=== PATIENT | male | born 1995 | race Caucasian/White ===

== ENCOUNTER 2016-11-14 21:17 | Emergency (ER) | payer MEDICAID ==
[2016-11-14 21:39] VITALS: BP 133/66
[2016-11-14] MEDS ORDERED: Ketorolac 60 MG/2 ML SDV IM ONE (21:56)
[2016-11-14] MEDS ORDERED: Amoxicillin 500 MG Cap PO ONE (21:56)
[2016-11-14] MEDS ORDERED: Lidocaine 4% Top Soln 50 ML Bottle MUCMEM ONE (21:57)
[2016-11-14] MEDS ORDERED: Acetaminophen/HYDROcodone 325-5 MG Tab PO ONE (22:02)
--- NOTE | 2016-11-14 22:03 | EDM.PDOC ---
ED HPI GENERAL MEDICAL PROBLEM - General Chief Complaint: ENT Problem Stated Complaint: INFECTED TOOTH Time Seen by Provider: 11/14/16 21:57 Source of Information: Reports: Patient, Family History Limitations: Reports: No Limitations - History of Present Illness INITIAL COMMENTS - FREE TEXT/NARRATIVE: pt is having severe pain in the rt upper molar area. He is having severe pain in the tooth the last few days. . He has not had a fever. Onset: Gradual Duration: Day(s):, Getting Worse Location: Reports: Face Associated Symptoms: Reports: No Other Symptoms right tooth Pain Score (Numeric/FACES): 8 - Related Data Allergies Allergy/AdvReac Type Severity Reaction Status Date / Time No Known Allergies Allergy Verified 11/23/14 07:21 Home Meds: Home Meds Insulin Pump Cartridge [T:Flex] 1 each SQ ASDIRECTED 01/10/16 [History] Past Medical History Musculoskeletal History: Reports: Fracture Other Musculoskeletal History: back muscle spasms. fx ankle. fx hand Neurological History: Reports: Concussion Other Psychiatric History: history of anxiety adn depression not current Endocrine/Metabolic History: Reports: Diabetes, Type I, Other (See Below) Other Endocrine/Metabolic History: diabetic neuropathy feet - Past Surgical History GI Surgical History: Reports: Appendectomy Social & Family History - Tobacco Use Smoking Status *Q: Current Every Day Smoker Years of Tobacco use: 7 Packs/Tins Daily: 2 Used Tobacco, but Quit: No Second Hand Smoke Exposure: Yes - Caffeine Use Caffeine Use: Reports: Soda - Alcohol Use Days Per Week of Alcohol Use: 1 Number of Drinks Per Day: 10 Total Drinks Per Week: 10 Date of Last Drink: 11/03/16 - Recreational Drug Use Recreational Drug Use: No ED ROS ENT - Review of Systems Review Of Systems: See Below Constitutional: Reports: Night Sweats HEENT: Reports: Dental Pain Respiratory: Reports: No Symptoms Cardiovascular: Reports: No Symptoms Endocrine: Reports: No Symptoms GI/Abdominal: Reports: No Symptoms : Reports: No Symptoms ED EXAM, ENT - Physical Exam Exam: See Below Text/Narrative:: pt broke a molar in the rt upper area. It is very pinful and feels like it is getting infected. Exam Limited By: No Limitations General Appearance: Alert, Anxious, Moderate Distress Ears: Normal TMs Nose: Normal Inspection Mouth/Throat: Dental Tenderness, Other (pt is very tender in the rt upper molar area. ) Head: Atraumatic Neck: Lymphadenopathy (R) Respiratory/Chest: No Respiratory Distress Course - Vital Signs Last Recorded V/S: Last Vital Signs Temp 36.4 C 11/14/16 21:37 Pulse 79 11/14/16 21:37 Resp 16 11/14/16 21:37 BP 133/66 11/14/16 21:37 Pulse Ox 98 11/14/16 21:37 - Orders/Labs/Meds Orders: Active Orders 24 hr Category Date Time Status Lidocaine 4% [Xylocaine 4% Top Soln] Med 11/14/16 21:57 Once 1 ml MUCMEM ONETIME ONE Meds: Medications Discontinued Medications Generic Name Dose Route Start Last Admin Trade Name Freq PRN Reason Stop Dose Admin Amoxicillin 500 mg 11/14/16 21:56 Amoxil PO 11/14/16 21:57 ONETIME ONE Ketorolac Tromethamine 60 mg 11/14/16 21:56 Toradol IM 11/14/16 21:57 ONETIME ONE - Re-Assessments/Exams Free Text/Narrative Re-Assessment/Exam: 11/14/16 22:02 pt was given torodol and norco 5/325 for pain. He was given amoxicillin 500mg Departure - Departure Time of Disposition: 22:03 Disposition: Home, Self-Care 01 Condition: Fair Clinical Impression: Infected tooth, Type 1 diabetes - Discharge Information Forms: ED Department Discharge Care Plan Goals: dental referal for Thursday. put packs on the site with the 4 % lidocaine, amoxicillin 500mg tid, [id number] # 6, motrin 600mg tid. 5/4 - My Orders Last 24 Hours: My Active Orders 11/14/16 21:57 Lidocaine 4% [Xylocaine 4% Top Soln] 1 ml MUCMEM ONETIME ONE - Assessment/Plan Last 24 Hours: My Active Orders 11/14/16 21:57 Lidocaine 4% [Xylocaine 4% Top Soln] 1 ml MUCMEM ONETIME ONE
== END 2016-11-14 22:30 | disposition home or self-care (01) ==
LOC: JP.ED 21:17
DX: K04.7 Periapical abscess without sinus (principal); E10.22 Type 1 diabetes mellitus with diabetic chronic kidney disease; F17.210 Nicotine dependence, cigarettes, uncomplicated; Z90.49 Acquired absence of other specified parts of digestive tract
CPT/HCPCS: 96372; 99283; A9270; J1885

== ENCOUNTER 2017-08-18 22:08 | Emergency (ER) | payer SELFPAY ==
[2017-08-18 23:10] VITALS: BP 136/65
[2017-08-18] MEDS ORDERED: Ketorolac 60 MG/2 ML SDV IM ONE (23:27)
--- NOTE | 2017-08-18 23:29 | EDM.PDOC ---
ED HPI GENERAL MEDICAL PROBLEM - General Chief Complaint: Lower Extremity Injury/Pain Stated Complaint: R FOOT INJURY Time Seen by Provider: 08/18/17 23:24 Source of Information: Reports: Patient, RN Notes Reviewed History Limitations: Reports: No Limitations - History of Present Illness INITIAL COMMENTS - FREE TEXT/NARRATIVE: 21-year-old gentleman presents to emergency department today with complaint of right foot pain, he is unsure of the mechanism of injury he thinks he twisted while walking he is experiencing pain across the top of the foot he has not tried anything for pain relief Right Feet Pain Score (Numeric/FACES): 7 - Related Data Allergies Allergy/AdvReac Type Severity Reaction Status Date / Time No Known Allergies Allergy Verified 08/18/17 23:12 Home Meds: Home Meds Insulin Pump Cartridge [T:Flex] 1 each SQ ASDIRECTED 01/10/16 [History] Past Medical History Musculoskeletal History: Reports: Fracture Other Musculoskeletal History: R KNEE FX, R ANKLE FX, R HAND FX Neurological History: Reports: Concussion Psychiatric History: Reports: Anxiety, Depression Other Psychiatric History: history of anxiety adn depression not current Endocrine/Metabolic History: Reports: Diabetes, Type I, Other (See Below) Other Endocrine/Metabolic History: diabetic neuropathy feet - Past Surgical History GI Surgical History: Reports: Appendectomy Social & Family History - Tobacco Use Smoking Status *Q: Unknown Ever Smoked Years of Tobacco use: 7 Packs/Tins Daily: 2 Used Tobacco, but Quit: No Second Hand Smoke Exposure: Yes - Caffeine Use Caffeine Use: Reports: Soda - Alcohol Use Days Per Week of Alcohol Use: 1 Number of Drinks Per Day: 10 Total Drinks Per Week: 10 - Recreational Drug Use Recreational Drug Use: No Review of Systems - Review of Systems Review Of Systems: See Below Musculoskeletal: Reports: Foot Pain Skin: Reports: No Symptoms Neurological: Reports: No Symptoms ED EXAM, GENERAL - Physical Exam Exam: See Below Free Text/Narrative:: Examination right foot appreciate any edema there is no erythema noted pedal pulse is +2 he is tender to palpation across the dorsal aspect of the range of motion of the digits there is no tenderness at the angle range of motion of ankle Exam Limited By: No Limitations General Appearance: Alert, WD/WN, No Apparent Distress Course - Vital Signs Last Recorded V/S: Last Vital Signs Temp 97.9 F 08/18/17 23:09 Pulse 92 08/18/17 23:09 Resp 16 08/18/17 23:09 BP 136/65 08/18/17 23:09 Pulse Ox 98 08/18/17 23:09 - Orders/Labs/Meds Orders: Active Orders 24 hr Category Date Time Status Foot Comp Min 3V Rt [CR] Stat Exams 08/18/17 23:27 Stop Req Foot Comp Min 3V Rt [CR] Stat Exams 08/19/17 00:15 Taken DME for Discharge [COMM] Per Unit Routine Oth 08/19/17 00:47 Ordered Meds: Medications Discontinued Medications Generic Name Dose Route Start Last Admin Trade Name Freq PRN Reason Stop Dose Admin Ketorolac Tromethamine 60 mg 08/18/17 23:27 08/19/17 00:07 Toradol IM 08/18/17 23:28 60 mg ONETIME ONE Administration Departure - Departure Time of Disposition: 00:48 Disposition: Home, Self-Care 01 Condition: Good Clinical Impression: Right foot sprain Qualifiers: Encounter type: initial encounter Qualified Code(s): S93.601A - Unspecified sprain of right foot, initial encounter - Discharge Information Referrals: Ricky Gonzales MD [Primary Care Provider] - Forms: ED Department Discharge Additional Instructions: Use Tylenol or Motrin as needed for pain control, continue to use the hard soled shoe for comfort, Please followup with your primary care provider in 3-5 days if not better, please call return to the emergency department with worsening of symptoms. We will contact you if the official radiology read is different - My Orders Last 24 Hours: My Active Orders 08/18/17 23:27 Foot Comp Min 3V Rt [CR] Stat 08/19/17 00:15 Foot Comp Min 3V Rt [CR] Stat 08/19/17 00:47 DME for Discharge [COMM] Per Unit Routine - Assessment/Plan Last 24 Hours: My Active Orders 08/18/17 23:27 Foot Comp Min 3V Rt [CR] Stat 08/19/17 00:15 Foot Comp Min 3V Rt [CR] Stat 08/19/17 00:47 DME for Discharge [COMM] Per Unit Routine Plan: Assessment Acuity = acute Site and laterality = right foot sprain Etiology = secondary to twisting injury Manifestations = foot pain Location of injury = Home Lab values = foot x-ray I did review films myself I cannot appreciate any acute process, the official read from radiology is pending Plan He had good improvement with the Toradol injection plan is to discharge home with a hard soled shoe follow-up primary care in 3-5 days for reevaluation use ibuprofen or Tylenol as needed for pain control This note was dictated using Between voice recognition software please call with any questions on syntax or tyler.
--- NOTE | 2017-08-19 08:45 | CR ---
FOOT RIGHT 3 views CLINICAL HISTORY:Pain, trauma FINDINGS:There is no fracture or osseous lesion. The articular surfaces are smooth. Impression: Negative
== END 2017-08-19 01:05 | disposition home or self-care (01) ==
LOC: JP.ED 22:08
DX: S93.601A Unspecified sprain of right foot, initial encounter (principal); E10.9 Type 1 diabetes mellitus without complications; X58.XXXA Exposure to other specified factors, initial encounter
CPT/HCPCS: 73630; 96372; 99283; J1885

== ENCOUNTER 2018-09-10 07:12 | Emergency (ER) | payer MEDICAID, OTHER ==
[2018-09-10 07:26] VITALS: BP 112/82
--- NOTE | 2018-09-10 07:45 | EDM.PDOC ---
ED HPI GENERAL MEDICAL PROBLEM - General Chief Complaint: Abdominal Pain Stated Complaint: FLU?? Time Seen by Provider: 09/10/18 07:37 Source of Information: Reports: Patient History Limitations: Reports: No Limitations - History of Present Illness INITIAL COMMENTS - FREE TEXT/NARRATIVE: 23-year-old type 1 insulin-dependent diabetic has been feeling poorly for the past 2 days with persistent nausea, vomiting, occasional diarrhea, generalized weakness and muscle pain. He pulled out his insulin pump from his right arm to rotate to the left arm yesterday and he thought some "pus came out". He has also had some persistent problems with his right upper molar over the past several days. He is concerned about infection, he is also concerned about ketoacidosis but his glucose has not gone above 300 in the past week and the last 2 levels were under 200. No fevers or chills, he does have some abdominal cramping intermittently but no shortness of breath or cough, no cold symptoms, no rashes or headache. Onset: Gradual (Over the past 2 days) Associated Symptoms: Reports: Malaise, Nausea/Vomiting. Denies: Confusion, Chest Pain, Cough, Shortness of Breath, Weakness Abdominal Pain Score (Numeric/FACES): 7 - Related Data Allergies Allergy/AdvReac Type Severity Reaction Status Date / Time No Known Allergies Allergy Verified 09/10/18 07:27 Home Meds: Home Meds Insulin Pump Cartridge [T:Flex] 1 each SQ ASDIRECTED 01/10/16 [History] Indomethacin 50 mg PO TID 09/10/18 [History] Pregabalin [Lyrica] 50 mg PO TID 09/10/18 [History] atorvaSTATin [Lipitor] 20 mg PO BEDTIME 09/10/18 [History] Past Medical History Musculoskeletal History: Reports: Fracture Other Musculoskeletal History: R KNEE FX, R ANKLE FX, R HAND FX Neurological History: Reports: Concussion Psychiatric History: Reports: Anxiety, Depression Other Psychiatric History: history of anxiety adn depression not current Endocrine/Metabolic History: Reports: Diabetes, Type I, Other (See Below) Other Endocrine/Metabolic History: diabetic neuropathy feet - Past Surgical History GI Surgical History: Reports: Appendectomy Social & Family History - Tobacco Use Smoking Status *Q: Current Every Day Smoker Years of Tobacco use: 8 Packs/Tins Daily: 1 - Caffeine Use Caffeine Use: Reports: Coffee - Recreational Drug Use Recreational Drug Use: No ED ROS GENERAL - Review of Systems Review Of Systems: See Below Constitutional: Reports: Malaise, Decreased Appetite HEENT: Reports: Dental Pain (Right upper molar, chronic fracture is now painful) Respiratory: Denies: Shortness of Breath, Hemoptysis Cardiovascular: Denies: Chest Pain, Dyspnea on Exertion, Palpitations Endocrine: Reports: Fatigue GI/Abdominal: Reports: Abdominal Pain, Diarrhea, Nausea, Vomiting : Reports: No Symptoms Musculoskeletal: Reports: Muscle Pain (Generalized muscle aches) Skin: Reports: Other (Some erythema around his right upper arm injection site, "pus came out", yesterday) Neurological: Denies: Dizziness, Headache, Paresthesia Psychiatric: Reports: No Symptoms ED EXAM, GI/ABD - Physical Exam Exam: See Below Exam Limited By: No Limitations General Appearance: Alert, No Apparent Distress Eyes: Bilateral: Normal Appearance Throat/Mouth: Other (Patient does have a fractured decayed second molar of the right maxilla. No significant gingival swelling or erythema) Head: Atraumatic Neck: Supple Respiratory/Chest: No Respiratory Distress, Lungs Clear Cardiovascular: Regular Rate, Rhythm GI/Abdominal Exam: Normal Bowel Sounds, Soft, Tender (A small amount of tenderness to palpation across the left abdomen especially periumbilical) Extremities: No Pedal Edema, Other (Patient does have a small amount of redness around his right posterior upper arm injection site but no fluctuance or evidence of abscess) Psychiatric: Normal Affect, Normal Mood Course - Vital Signs Last Recorded V/S: Last Vital Signs Temp 96.3 F 09/10/18 07:30 Pulse 82 09/10/18 07:30 Resp 14 09/10/18 07:30 BP 112/82 09/10/18 07:30 Pulse Ox 98 09/10/18 07:30 - Orders/Labs/Meds Labs: Laboratory Tests 09/10/18 09/10/18 Range/Units 07:50 07:50 WBC 7.8 (4.5-11.0) K/uL RBC 5.51 (4.30-5.90) M/uL Hgb 16.2 H (12.0-15.0) g/dL Hct 44.7 (40.0-54.0) % MCV 81 (80-98) fL MCH 29 (27-31) pg MCHC 36 (32-36) % Plt Count 251 (150-400) K/uL Neut % (Auto) 60 (36-66) % Lymph % (Auto) 30 (24-44) % [place] % (Auto) 7 H (2-6) % Eos % (Auto) 2 (2-4) % Baso % (Auto) 1 (0-1) % Sodium 140 (140-148) mmol/L Potassium 3.7 (3.6-5.2) mmol/L Chloride 102 (100-108) mmol/L Carbon Dioxide 31 (21-32) mmol/L Anion Gap 7.4 (5.0-14.0) mmol/L BUN 18 (7-18) mg/dL Creatinine 1.1 (0.8-1.3) mg/dL Est Cr Clr Drug Dosing 83.34 mL/min Estimated GFR (MDRD) > 60 (>60) Glucose 265 H (74-106) mg/dL Calcium 9.3 (8.5-10.1) mg/dL Total Bilirubin 0.3 D (0.2-1.0) mg/dL AST 17 D (15-37) U/L ALT 29 (12-78) U/L Alkaline Phosphatase 155 H (46-116) U/L Total Protein 6.7 (6.4-8.2) g/dL Albumin 3.7 (3.4-5.0) g/dL Globulin 3.0 (2.3-3.5) g/dL Albumin/Globulin Ratio 1.2 (1.2-2.2) Lipase 45 L (73-393) U/L Meds: Medications Discontinued Medications Generic Name Dose Route Start Last Admin Trade Name Daniela PRN Reason Stop Dose Admin Sodium Chloride 1,000 mls @ 999 mls/hr 09/10/18 07:46 09/10/18 08:00 Normal Saline IV 09/10/18 08:46 999 mls/hr ONETIME ONE Administration Ceftriaxone Sodium 1 gm/ 50 mls @ 100 mls/hr 09/10/18 08:16 09/10/18 08:26 Sodium Chloride IV 09/10/18 08:45 100 mls/hr ONETIME ONE Administration Ondansetron HCl 4 mg 09/10/18 07:46 09/10/18 08:01 Zofran IVPUSH 09/10/18 07:47 4 mg ONETIME ONE Administration - Re-Assessments/Exams Free Text/Narrative Re-Assessment/Exam: 09/10/18 07:57 An IV was started, patient will be bolused with 1 L of normal saline and given 4 mg of IV Zofran. CBC, CMP and lipase obtained. 09/10/18 09:33 White count was normal, CMP and lipase reassuring. Glucose 265. Patient was given 1 g of Rocephin IV, and will be discharged on cephalexin 3 times daily and given additional doses of Zofran. He can increase diet and activity as tolerated and return if worsening despite treatment. Departure - Departure Time of Disposition: 09:39 Disposition: Home, Self-Care 01 Condition: Good Clinical Impression: Gastroenteritis, Dental abscess, Right arm cellulitis - Discharge Information Instructions: Cellulitis, Adult Referrals: Karen Morataya PA-C [Primary Care Provider] - Forms: ED Department Discharge Care Plan Goals: Take antibiotic until gone starting this evening. Maintain fluid intake and glucose control, and return anytime if worsening despite treatment. Use Zofran for nausea as needed. Rest today. Try to see the dentist within the next few weeks.
[2018-09-10] MEDS ORDERED: Sodium Chloride 0.9% 1,000 ML IV ONE (07:46)
[2018-09-10] MEDS ORDERED: Ondansetron 4 MG/2 ML SDV IVPUSH ONE (07:46)
[2018-09-10] MEDS ORDERED: cefTRIAXone 1 GM in Sodium Chloride 0.9% 50 ML IV ONE (08:16)
== END 2018-09-10 09:44 | disposition home or self-care (01) ==
LOC: JP.ED 07:12
DX: K52.9 Noninfective gastroenteritis and colitis, unspecified (principal); K04.7 Periapical abscess without sinus; L03.113 Cellulitis of right upper limb; F17.210 Nicotine dependence, cigarettes, uncomplicated; F41.9 Anxiety disorder, unspecified; F32.9 Major depressive disorder, single episode, unspecified; E10.9 Type 1 diabetes mellitus without complications; Z79.4 Long term (current) use of insulin; Z79.899 Other long term (current) drug therapy
CPT/HCPCS: 36415; 80053; 83690; 85025; 96365; 96375; 99283; J0696; J2405; J7030; J7050

== ENCOUNTER 2019-01-31 08:49 | Emergency (ER) | payer MEDICAID ==
[2019-01-31 09:17] VITALS: BP 125/58; PULSE 86
--- NOTE | 2019-01-31 09:18 | EDM.PDOC ---
ED HPI GENERAL MEDICAL PROBLEM - General Chief Complaint: Diabetic Complaint Stated Complaint: HIGH BLOOD SUGARS Time Seen by Provider: 01/31/19 09:17 Source of Information: Reports: Patient History Limitations: Reports: No Limitations - History of Present Illness INITIAL COMMENTS - FREE TEXT/NARRATIVE: pt states the battery on his insulin pump went and he was not geting his insulin during the nite. He has not got it charged up and he is getting insulin at this point. He has alot of ketones and he is achy. Onset: Today Duration: Hour(s): Location: Reports: Abdomen, Generalized Associated Symptoms: Reports: Nausea/Vomiting, Weakness Generalized Pain Score (Numeric/FACES): 4 - Related Data Allergies Allergy/AdvReac Type Severity Reaction Status Date / Time No Known Allergies Allergy Verified 01/31/19 09:05 Home Meds: Home Meds Insulin Pump Cartridge [T:Flex] 1 each SQ ASDIRECTED 01/10/16 [History] Indomethacin 50 mg PO TID 09/10/18 [History] Pregabalin [Lyrica] 50 mg PO TID 09/10/18 [History] atorvaSTATin [Lipitor] 20 mg PO BEDTIME 09/10/18 [History] Past Medical History HEENT History: Reports: None Cardiovascular History: Reports: Other (See Below) Musculoskeletal History: Reports: Fracture Other Musculoskeletal History: R KNEE FX, R ANKLE FX, R HAND FX Neurological History: Reports: Concussion Psychiatric History: Reports: Anxiety, Depression Other Psychiatric History: history of anxiety adn depression not current Endocrine/Metabolic History: Reports: Diabetes, Type I, Other (See Below) Other Endocrine/Metabolic History: diabetic neuropathy feet - Past Surgical History Head Surgeries/Procedures: Reports: None HEENT Surgical History: Reports: None Cardiovascular Surgical History: Reports: None GI Surgical History: Reports: Appendectomy Endocrine Surgical History: Reports: None Neurological Surgical History: Reports: None Musculoskeletal Surgical History: Reports: None Dermatological Surgical History: Reports: None Social & Family History - Tobacco Use Smoking Status *Q: Current Every Day Smoker Years of Tobacco use: 12 Packs/Tins Daily: 1.5 Used Tobacco, but Quit: No Second Hand Smoke Exposure: Yes - Caffeine Use Caffeine Use: Reports: Coffee, Soda - Recreational Drug Use Recreational Drug Use: No ED ROS GENERAL - Review of Systems Review Of Systems: See Below Constitutional: Reports: Malaise, Weakness, Decreased Appetite, Other (nausea) HEENT: Reports: No Symptoms Respiratory: Reports: No Symptoms Cardiovascular: Reports: No Symptoms Endocrine: Reports: Fatigue, High Glucose GI/Abdominal: Reports: Nausea : Reports: No Symptoms Musculoskeletal: Reports: No Symptoms Skin: Reports: No Symptoms ED EXAM GENERAL NO PERIP PULSE - Physical Exam Exam: See Below Text/Narrative:: pt had a very high sugar this am. He was not feeling well and was a little nauseated. He has not vomited. He does have his insulin pump going and the pump delivered 11 units about 1 hour ago. Exam Limited By: No Limitations General Appearance: Alert, Anxious, Mild Distress Ears: Normal TMs Nose: Normal Inspection Throat/Mouth: Normal Inspection Head: Atraumatic Neck: Normal Inspection Respiratory/Chest: No Respiratory Distress Cardiovascular: Regular Rate, Rhythm GI/Abdominal: Soft, Non-Tender (Male) Exam: Deferred Rectal (Males) Exam: Deferred Back Exam: Normal Inspection Extremities: Normal Inspection Neurological: Alert, Oriented, Normal Cognition Psychiatric: Normal Affect Course - Vital Signs Last Recorded V/S: Last Vital Signs Temp 35.5 C 01/31/19 09:17 Pulse 86 01/31/19 09:17 Resp 19 01/31/19 09:17 BP 125/58 L 01/31/19 09:17 Pulse Ox 97 01/31/19 09:17 - Orders/Labs/Meds Labs: Laboratory Tests 01/31/19 01/31/19 01/31/19 Range/Units 09:14 09:28 09:28 WBC 11.3 H (4.5-11.0) K/uL RBC 5.51 (4.30-5.90) M/uL Hgb 16.0 H (12.0-15.0) g/dL Hct 45.4 (40.0-54.0) % MCV 82 (80-98) fL MCH 29 (27-31) pg MCHC 35 (32-36) % Plt Count 257 (150-400) K/uL Neut % (Auto) 79 H (36-66) % Lymph % (Auto) 15 L (24-44) % [place] % (Auto) 5 (2-6) % Eos % (Auto) 1 L (2-4) % Baso % (Auto) 0 (0-1) % VBG pH 7.376 (7.350-7.450) Sodium 135 L (140-148) mmol/L Potassium 5.0 (3.6-5.2) mmol/L Chloride 101 (100-108) mmol/L Carbon Dioxide 24 (21-32) mmol/L Anion Gap 15.0 H (5.0-14.0) mmol/L BUN 15 (7-18) mg/dL Creatinine 1.1 (0.8-1.3) mg/dL Est Cr Clr Drug Dosing 79.97 mL/min Estimated GFR (MDRD) > 60 (>60) Glucose 315 H (74-106) mg/dL Calcium 9.1 (8.5-10.1) mg/dL Total Bilirubin 0.7 D (0.2-1.0) mg/dL AST 11 L (15-37) U/L ALT 17 (12-78) U/L Alkaline Phosphatase 134 H (46-116) U/L Total Protein 6.9 (6.4-8.2) g/dL Albumin 3.9 (3.4-5.0) g/dL Globulin 3.0 (2.3-3.5) g/dL Albumin/Globulin Ratio 1.3 (1.2-2.2) Urine Color (YELLOW) Urine Appearance (CLEAR) Urine pH (5.0-8.0) Ur Specific [place] (1.008-1.030) Urine Protein (NEGATIVE) mg/dL Urine Glucose (UA) (NEGATIVE) mg/dL Urine Ketones (NEGATIVE) mg/dL Urine Occult Blood (NEGATIVE) Urine Nitrite (NEGATIVE) Urine Bilirubin (NEGATIVE) Urine Urobilinogen (0.2-1.0) EU/dL Ur Leukocyte Esterase (NEGATIVE) Urine RBC (0-5) Urine WBC (0-5) Ur Epithelial Cells Amorphous Sediment Urine Bacteria Urine Mucus 01/31/19 Range/Units 09:45 WBC (4.5-11.0) K/uL RBC (4.30-5.90) M/uL Hgb (12.0-15.0) g/dL Hct (40.0-54.0) % MCV (80-98) fL MCH (27-31) pg MCHC (32-36) % Plt Count (150-400) K/uL Neut % (Auto) (36-66) % Lymph % (Auto) (24-44) % [place] % (Auto) (2-6) % Eos % (Auto) (2-4) % Baso % (Auto) (0-1) % VBG pH (7.350-7.450) Sodium (140-148) mmol/L Potassium (3.6-5.2) mmol/L Chloride (100-108) mmol/L Carbon Dioxide (21-32) mmol/L Anion Gap (5.0-14.0) mmol/L BUN (7-18) mg/dL Creatinine (0.8-1.3) mg/dL Est Cr Clr Drug Dosing mL/min Estimated GFR (MDRD) (>60) Glucose (74-106) mg/dL Calcium (8.5-10.1) mg/dL Total Bilirubin (0.2-1.0) mg/dL AST (15-37) U/L ALT (12-78) U/L Alkaline Phosphatase (46-116) U/L Total Protein (6.4-8.2) g/dL Albumin (3.4-5.0) g/dL Globulin (2.3-3.5) g/dL Albumin/Globulin Ratio (1.2-2.2) Urine Color Yellow (YELLOW) Urine Appearance Clear (CLEAR) Urine pH 5.5 (5.0-8.0) Ur Specific [place] 1.015 (1.008-1.030) Urine Protein Negative (NEGATIVE) mg/dL Urine Glucose (UA) 500 H (NEGATIVE) mg/dL Urine Ketones 15 H (NEGATIVE) mg/dL Urine Occult Blood Negative (NEGATIVE) Urine Nitrite Negative (NEGATIVE) Urine Bilirubin Negative (NEGATIVE) Urine Urobilinogen 0.2 (0.2-1.0) EU/dL Ur Leukocyte Esterase Negative (NEGATIVE) Urine RBC Not seen (0-5) Urine WBC 0-5 (0-5) Ur Epithelial Cells Not seen Amorphous Sediment Not seen Urine Bacteria Not seen Urine Mucus Not seen Meds: Medications Discontinued Medications Generic Name Dose Route Start Last Admin Trade Name Freq PRN Reason Stop Dose Admin Sodium Chloride 1,000 mls @ 999 mls/hr 01/31/19 09:30 01/31/19 09:44 Normal Saline IV 999 mls/hr ASDIRECTED ANGELA Administration Sodium Chloride 1,000 mls @ 999 mls/hr 01/31/19 10:15 01/31/19 10:55 Normal Saline IV 999 mls/hr ASDIRECTED ANGELA Administration Insulin Human Regular 3 unit 01/31/19 09:58 01/31/19 10:11 Humulin R SUBCUT 01/31/19 09:59 3 unit ONETIME ONE Administration Ondansetron HCl 4 mg 01/31/19 09:29 01/31/19 09:44 Zofran IVPUSH 01/31/19 09:30 4 mg ONETIME ONE Administration - Re-Assessments/Exams Free Text/Narrative Re-Assessment/Exam: 01/31/19 11:32 pt has a bs of 156. He is feeling better and then thinks he can eat. He has had 2 liters of fluid. 02/01/19 07:39 Departure - Departure Time of Disposition: 12:05 Disposition: Home, Self-Care 01 Condition: Fair Clinical Impression: Hyperglycemia, Insulin pump mechanical complication, Dehydration - Discharge Information Instructions: Hyperglycemia, [id number] Referrals: Karen Morataya PA-C [Primary Care Provider] - Forms: ED Department Discharge Care Plan Goals: watch sugar closely today. cont with usual protocol.
[2019-01-31] MEDS ORDERED: Ondansetron 4 MG/2 ML SDV IVPUSH ONE (09:29)
[2019-01-31] MEDS ORDERED: Sodium Chloride 0.9% 1,000 ML IV SCH ×2 (09:30→10:15)
[2019-01-31] MEDS ORDERED: Insulin Regular, Human 100 Units/ML 3 ML Vial SUBCUT ONE (09:58)
== END 2019-01-31 12:03 | disposition home or self-care (01) ==
LOC: JP.ED 08:49
DX: T85.694A Other mechanical complication of insulin pump, initial encounter (principal); E11.65 Type 2 diabetes mellitus with hyperglycemia; E86.0 Dehydration; F17.210 Nicotine dependence, cigarettes, uncomplicated; Z79.4 Long term (current) use of insulin; Z79.899 Other long term (current) drug therapy
CPT/HCPCS: 36415; 80053; 81001; 82800; 82962; 85025; 96361; 96372; 96374; 99284; J2405; J7030; J1815-GY

== ENCOUNTER 2020-01-16 14:07 | Emergency (ER) | payer MEDICAID ==
[2020-01-16 14:21] VITALS: BP 128/72; PULSE 96
[2020-01-16] MEDS ORDERED: Tetracaine HCl/PF 0.5% 4 ML Bottle OP ONE (14:40)
--- NOTE | 2020-01-16 14:42 | EDM.PDOC ---
ED HPI GENERAL MEDICAL PROBLEM - General Chief Complaint: Eye Problems Stated Complaint: HIT IN EYE WITH PIECE OF WOOD Time Seen by Provider: 01/16/20 14:41 Source of Information: Reports: Patient - History of Present Illness INITIAL COMMENTS - FREE TEXT/NARRATIVE: Eber is a 24 year old male whom presents to [place] ER for evaluation for right eye irritation after using a saw last night. Eber report he felt something get into his right eye resulting in irritation last night with minimal to no discomfort. Eber was able to sleep but had more severe pain this am upon awakening. Eber attempted to irrigate the right eye with eye drops at home but no improvement. Eber reports photophobia and eye discomfort with watering and pain. Eber has taken nothing for pain today. He denies history of previous eye injury or concerns. Eber was brought to ER by , whom will return to pick him up after evaluation. VISUAL ACUITY: Right 20/50 Left 20/30 w/o correction. Right Eye Pain Score (Numeric/FACES): 8 - Related Data Allergies Allergy/AdvReac Type Severity Reaction Status Date / Time No Known Allergies Allergy Verified 01/16/20 14:21 Home Meds: Home Meds Insulin Pump Cartridge [T:Flex] 1 each SQ ASDIRECTED 01/10/16 [History] Acetaminophen/HYDROcodone [[place] 325-5 MG] 1 - 2 tab PO Q6H PRN 1 Days #4 tab 01/16/20 [Rx] Erythromycin Base [Erythromycin 0.5% Ophth Oint] 1 applic OP Q4H 5 Days #1 tube 01/16/20 [Rx] Past Medical History HEENT History: Reports: None Cardiovascular History: Reports: Other (See Below) Musculoskeletal History: Reports: Fracture, Other (See Below) Other Musculoskeletal History: R KNEE FX, R ANKLE FX, R HAND FX. right shoulder pain Neurological History: Reports: Concussion Psychiatric History: Reports: Anxiety, Depression Other Psychiatric History: history of anxiety adn depression not current Endocrine/Metabolic History: Reports: Diabetes, Type I, Other (See Below) Other Endocrine/Metabolic History: diabetic neuropathy feet - Infectious Disease History Infectious Disease History: Reports: None - Past Surgical History Head Surgeries/Procedures: Reports: None HEENT Surgical History: Reports: None Cardiovascular Surgical History: Reports: None GI Surgical History: Reports: Appendectomy Endocrine Surgical History: Reports: None Neurological Surgical History: Reports: None Musculoskeletal Surgical History: Reports: None Dermatological Surgical History: Reports: None Social & Family History - Tobacco Use Smoking Status *Q: Current Every Day Smoker Years of Tobacco use: 7 Packs/Tins Daily: 1 - Caffeine Use Caffeine Use: Reports: Coffee, Soda Caffeine Use Comment: SMALL AMOUNTS - Recreational Drug Use Recreational Drug Use: No ED ROS GENERAL - Review of Systems Review Of Systems: Comprehensive ROS is negative, except as noted in HPI. ED EXAM GENERAL W FULL EYE - Physical Exam Exam: See Below Exam Limited By: No Limitations General Appearance: Alert, WD/WN, Moderate Distress (due to eye discomfort) Eye Exam: Right Eye: Conjunctival Injection, Corneal Abrasion (using stain and crisostomo lamp), Vision Changes (20/50 per Visual Acuity), Left Eye: Normal Inspection, Bilateral Eye: EOMI, PERRL Visual Acuity (R) 20/: 50 Visual Acuity (L) 20/: 30 With Correction: No Eyelids: Right: Edema, Erythema, Lid Everted for Exam, Left: Normal Appearance Conjunctiva & Sclera: Right: Conjunctival Edema, Discharge (watery non- purulent), Left: Normal Appearance Cornea Exam: Right: Corneal Abrasion (no haziness or ulceration), Examined with Flourescein, Left: Normal Appearance Pupillary Reaction: Bilateral: Brisk Anterior Chamber: Bilateral: Normal Appearance Ears: Normal External Exam, Hearing Grossly Normal Nose: Normal Inspection, Normal Mucosa Throat/Mouth: Normal Inspection Head: Normocephalic Neck: Full Range of Motion, Carotid Bruit Respiratory/Chest: No Respiratory Distress Cardiovascular: Normal Peripheral Pulses Neurological: Alert, Oriented, CN II-XII Intact, Normal Cognition, No Motor/Sensory Deficits Psychiatric: Normal Affect, Normal Mood Skin Exam: Warm, Dry, Intact, Normal Color, No Rash ED EYE w/ Add Procedure - Eye Procedure Alcaine Drops Administered: Yes (Tetracaine drops applied in affected eye, pain resolved) Eye Irrigated w/ Saline (ccs): 5 (irrigation of stain) Course - Vital Signs Last Recorded V/S: Last Vital Signs Temp 36.7 C 01/16/20 14:19 Pulse 96 01/16/20 14:19 Resp 16 01/16/20 14:19 BP 128/72 01/16/20 14:19 Pulse Ox 99 01/16/20 14:19 - Orders/Labs/Meds Orders: Active Orders 24 hr Category Date Time Status Visual Acuity [Vision Test] [RC] ASDIRECTED Care 01/16/20 14:41 Active Acetaminophen/HYDROcodone [[place] 325-5 MG] Med 01/16/20 14:58 Once 2 tab PO ONETIME ONE Ibuprofen [Motrin] Med 01/16/20 14:58 Once 800 mg PO ONETIME ONE Meds: Medications Discontinued Medications Generic Name Dose Route Start Last Admin Trade Name Freq PRN Reason Stop Dose Admin Tetracaine HCl 2 ml 01/16/20 14:40 01/16/20 14:48 Tetracaine 0.5% Steri-Unit Ita OP 01/16/20 14:41 4 drop ASDIRECTED ONE Administration Departure - Departure Time of Disposition: 15:14 Disposition: Home, Self-Care 01 Clinical Impression: Corneal abrasion - Discharge Information Prescriptions: Erythromycin Base [Erythromycin 0.5% Ophth Oint] 1 applic OP Q4H 5 Days #1 tube Acetaminophen/HYDROcodone [[place] 325-5 MG] 1 - 2 tab PO Q6H PRN 1 Days #4 tab PRN Reason: Pain (Severe 7-10) Instructions: Corneal Abrasion, Eye Foreign Body, [id number] Referrals: Karen Morataya PA-C [Primary Care Provider] - Forms: ED Department Discharge Additional Instructions: 1. Antibiotic eye ointment as directed x 5-7 days to ensure healing without infection. 2. Tylenol every 6 hours for mild pain if needed. 3. Ibuprofen 600mg every 6-8 hrs with food for pain and inflammation. 4. Call local eye doctor for repeat evaluation is vision note improving by Thursday. You may benefit from an eye examination for glasses. 5. Return to ER for repeat evaluation, if eye becomes painful, increased redness, symptoms or new concerns. Sepsis Event Note (ED) - Evaluation Sepsis Screening Result: No Definite Risk - Focused Exam Vital Signs: Vital Signs Temp Pulse Resp BP Pulse Ox 01/16/20 14:19 36.7 C 96 16 128/72 99 - My Orders Last 24 Hours: My Active Orders 01/16/20 14:41 Visual Acuity [Vision Test] [RC] ASDIRECTED 01/16/20 14:58 Acetaminophen/HYDROcodone [[place] 325-5 MG] 2 tab PO ONETIME ONE Ibuprofen [Motrin] 800 mg PO ONETIME ONE - Assessment/Plan Last 24 Hours: My Active Orders 01/16/20 14:41 Visual Acuity [Vision Test] [RC] ASDIRECTED 01/16/20 14:58 Acetaminophen/HYDROcodone [[place] 325-5 MG] 2 tab PO ONETIME ONE Ibuprofen [Motrin] 800 mg PO ONETIME ONE
[2020-01-16] MEDS ORDERED: Ibuprofen 800 MG Tab PO ONE (14:58)
[2020-01-16] MEDS ORDERED: Acetaminophen/HYDROcodone 325-5 MG Tab PO ONE (14:58)
== END 2020-01-16 15:35 | disposition home or self-care (01) ==
LOC: JP.ED 14:07
DX: S05.01XA Injury of conjunctiva and corneal abrasion without foreign body, right eye, initial encounter (principal); E10.40 Type 1 diabetes mellitus with diabetic neuropathy, unspecified; F17.210 Nicotine dependence, cigarettes, uncomplicated
CPT/HCPCS: 99283; A9270

== ENCOUNTER 2020-04-13 00:03 | Emergency (ER) | payer MEDICAID ==
--- NOTE | 2020-04-13 00:28 | EDM.PDOC ---
ED HPI GENERAL MEDICAL PROBLEM - General Chief Complaint: General Stated Complaint: FALL VIA NORTH Time Seen by Provider: 04/13/20 00:10 Source of Information: Reports: Patient, EMS, Old Records History Limitations: Reports: No Limitations - History of Present Illness INITIAL COMMENTS - FREE TEXT/NARRATIVE: 24 yo male with IDDM was drinking tonight and passed out in the bathroom. His called EMS and on arrival he is alert, oriented and cooperative. His BS on his monitor is 217. 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 right shoulder pain Neurological History: Reports: Concussion Psychiatric History: Reports: Anxiety, Depression Other Psychiatric History: history of anxiety adn depression not current Endocrine/Metabolic History: Reports: Diabetes, Type I, Other (See Below) Other Endocrine/Metabolic History: diabetic neuropathy feet - Infectious Disease History Infectious Disease History: Reports: None - Past Surgical History Head Surgeries/Procedures: Reports: None HEENT Surgical History: Reports: None Cardiovascular Surgical History: Reports: None GI Surgical History: Reports: Appendectomy Endocrine Surgical History: Reports: None Neurological Surgical History: Reports: None Musculoskeletal Surgical History: Reports: None Dermatological Surgical History: Reports: None Social & Family History - Caffeine Use Caffeine Use: Reports: Coffee, Soda Caffeine Use Comment: SMALL AMOUNTS ED ROS GENERAL - Review of Systems Review Of Systems: See Below Constitutional: Reports: No Symptoms HEENT: Reports: No Symptoms Respiratory: Reports: No Symptoms Cardiovascular: Reports: No Symptoms GI/Abdominal: Reports: No Symptoms : Reports: No Symptoms Musculoskeletal: Reports: No Symptoms Skin: Reports: No Symptoms Neurological: Reports: Other (mild intoxication) ED EXAM, GENERAL - Physical Exam Exam: See Below Exam Limited By: No Limitations General Appearance: Alert, WD/WN, No Apparent Distress Eye Exam: Bilateral Eye: EOMI, PERRL Ears: Normal External Exam, Normal Canal, Hearing Grossly Normal Ear Exam: Bilateral Ear: Auricle Normal, Canal Normal Nose: Normal Inspection, No Blood Throat/Mouth: Normal Inspection, Normal Lips, Normal Oropharynx, Normal Voice, No Airway Compromise Head: Atraumatic, Normocephalic Neck: Normal Inspection Respiratory/Chest: No Respiratory Distress, Lungs Clear, Normal Breath Sounds, No Accessory Muscle Use Cardiovascular: Regular Rate, Rhythm, No Edema GI/Abdominal: Normal Bowel Sounds, Soft, Non-Tender, No Distention Back Exam: Normal Inspection. No: CVA Tenderness (R), CVA Tenderness (L) Extremities: Normal Inspection, Normal Range of Motion, Non-Tender, No Pedal Edema Neurological: Alert, Oriented, CN II-XII Intact, Normal Cognition, No Motor/Sen cortes Deficits Psychiatric: Normal Affect, Normal Mood Skin Exam: Warm, Dry, Intact, Normal Color, No Rash Course - Vital Signs Last Recorded V/S: Last Vital Signs Temp 36.8 C 04/13/20 00:18 Pulse 87 04/13/20 00:18 Resp 14 04/13/20 00:18 BP 109/61 04/13/20 00:18 Pulse Ox 99 04/13/20 00:18 Departure - Departure Time of Disposition: 00:41 Disposition: Home, Self-Care 01 Condition: Fair Clinical Impression: Alcohol intoxication Qualifiers: Complication of substance-induced condition: uncomplicated Qualified Code(s): F10.920 - Alcohol use, unspecified with intoxication, uncomplicated - Discharge Information *PRESCRIPTION DRUG MONITORING PROGRAM REVIEWED*: Not Applicable *COPY OF PRESCRIPTION DRUG MONITORING REPORT IN PATIENT SHAHAB: Not Applicable Referrals: PCP,None [Primary Care Provider] - Forms: ED Department Discharge Additional Instructions: No driving or other dangerous activities while under the influence of alcohol. Watch your sugars. Recheck as needed. Sepsis Event Note (ED) - Focused Exam Vital Signs: Vital Signs Temp Pulse Resp BP Pulse Ox 04/13/20 00:18 36.8 C 87 14 109/61 99
[2020-04-13 00:34] VITALS: BP 109/61; PULSE 87
== END 2020-04-13 00:52 | disposition home or self-care (01) ==
LOC: JP.ED 00:03
DX: F10.120 Alcohol abuse with intoxication, uncomplicated (principal); E10.9 Type 1 diabetes mellitus without complications
CPT/HCPCS: 99284

== ENCOUNTER 2021-01-10 19:48 | Emergency (ER) | payer MEDICAID ==
[2021-01-10 20:53] VITALS: BP 132/74; PULSE 115
--- NOTE | 2021-01-10 22:26 | EDM.PDOC ---
ED HPI GENERAL MEDICAL PROBLEM - General Chief Complaint: Respiratory Problem Stated Complaint: COUGH, SORE THROAT, SOB , DIZZY Time Seen by Provider: 01/10/21 20:10 Source of Information: Reports: Patient History Limitations: Reports: No Limitations - History of Present Illness INITIAL COMMENTS - FREE TEXT/NARRATIVE: Eber is a 25-year-old male presenting to the ED for evaluation of increasing shortness of breath, cough, body aches, and sore throat. He has had significant nasal congestion and rhinorrhea. His has acute sinusitis at this time. He has had a low-grade fever. The cough has been minimally productive but he has been increasingly short of breath. Patient is type I diabetic. They were both tested 2 weeks ago for COVID-19 and were negative. Generalized Pain Score (Numeric/FACES): 5 - Related Data Allergies Allergy/AdvReac Type Severity Reaction Status Date / Time No Known Allergies Allergy Verified 01/10/21 20:48 Home Meds: Home Meds Insulin Pump Cartridge [T:Flex] 1 each SQ ASDIRECTED 01/10/16 [History] Past Medical History HEENT History: Reports: None, Impaired Vision Cardiovascular History: Reports: Heart Murmur, High Cholesterol, Other (See Below) Other Cardiovascular History: hole in heart Respiratory History: Reports: Pneumonia, Recurrent Gastrointestinal History: Reports: Other (See Below) Other Gastrointestinal History: "swollen liver" Musculoskeletal History: Reports: Fracture, Other (See Below) Other Musculoskeletal History: R KNEE FX, R ANKLE FX, R HAND FX. right shoulder pain Neurological History: Reports: Concussion, Neuropathy, Diabetic Psychiatric History: Reports: Anxiety, Depression Other Psychiatric History: history of anxiety adn depression not current Endocrine/Metabolic History: Reports: Diabetes, Type I, Other (See Below) Other Endocrine/Metabolic History: diabetic neuropathy feet Insulin Pump Model and Church History Professor: [id number] Type of Insulin Used in Pump: Novolg When was Your Last Insulin Site/Set Changed: 01/09/2021 Who Manages Your Pump: Patient (Self) Who Medically Manages Your Pump (Provider): Chika at [facility] Basal Rate (Units/hr): 1.25 - Infectious Disease History Infectious Disease History: Reports: None - Past Surgical History Head Surgeries/Procedures: Reports: None HEENT Surgical History: Reports: None Cardiovascular Surgical History: Reports: None GI Surgical History: Reports: Appendectomy Endocrine Surgical History: Reports: None Neurological Surgical History: Reports: None Musculoskeletal Surgical History: Reports: None Dermatological Surgical History: Reports: None Social & Family History - Tobacco Use Tobacco Use Status *Q: Current Every Day Tobacco User Years of Tobacco use: 8 Packs/Tins Daily: 1.5 - Caffeine Use Caffeine Use: Reports: Soda Caffeine Use Comment: SMALL AMOUNTS - Recreational Drug Use Recreational Drug Use: Yes ED ROS GENERAL - Review of Systems Review Of Systems: See Below Constitutional: Reports: Fever, Chills, Decreased Appetite HEENT: Reports: Rhinitis, Sinus Problem, Throat Pain Respiratory: Reports: Shortness of Breath, Cough Cardiovascular: Reports: No Symptoms Endocrine: Reports: No Symptoms GI/Abdominal: Reports: No Symptoms : Reports: No Symptoms Musculoskeletal: Reports: Muscle Pain Neurological: Reports: No Symptoms Psychiatric: Reports: No Symptoms Hematologic/Lymphatic: Reports: No Symptoms Immunologic: Reports: No Symptoms ED EXAM, GENERAL - Physical Exam Exam: See Below Exam Limited By: No Limitations General Appearance: Alert, Anxious, Mild Distress Eye Exam: Bilateral Eye: EOMI, PERRL Throat/Mouth: Normal Inspection, Normal Oropharynx, Normal Voice, No Airway Compromise Head: Atraumatic, Normocephalic Respiratory/Chest: No Respiratory Distress, No Accessory Muscle Use, Rhonchi (Right base) Cardiovascular: Normal Peripheral Pulses, Regular Rate, Rhythm, No Murmur Peripheral Pulses: 2+: Radial (L), Radial (R) GI/Abdominal: Normal Bowel Sounds, Soft, Non-Tender Back Exam: Normal Inspection, Full Range of Motion Extremities: Normal Inspection, Normal Range of Motion Neurological: Alert, Oriented, Normal Cognition, No Motor/Sensory Deficits Psychiatric: Normal Affect, Normal Mood Skin Exam: Warm, Dry Course - Vital Signs Last Recorded V/S: Last Vital Signs Temp 36.8 C 01/10/21 20:53 Pulse 115 H 01/10/21 20:53 Resp 17 01/10/21 20:53 BP 132/74 01/10/21 20:53 Pulse Ox 96 01/10/21 20:53 - Orders/Labs/Meds Orders: Active Orders 24 hr Category Date Time Status Chest 1V Frontal [CR] Stat Exams 01/10/21 21:13 Taken Labs: Laboratory Tests 01/10/21 01/10/21 01/10/21 Range/Units 21:13 21:32 21:32 WBC 15.7 H (4.5-11.0) K/uL RBC 5.67 (4.30-5.90) M/uL Hgb 17.0 H (12.0-15.0) g/dL Hct 45.9 (40.0-54.0) % MCV 81 (80-98) fL MCH 30 (27-31) pg MCHC 37 H (32-36) % Plt Count 261 (150-400) K/uL Neut % (Auto) 85.1 H (36-66) % Lymph % (Auto) 7.2 L (24-44) % Sandoval % (Auto) 7.0 H (2-6) % Eos % (Auto) 0.4 L (2-4) % Baso % (Auto) 0.3 (0-1) % Sodium 137 L (140-148) mmol/L Potassium 4.0 (3.6-5.2) mmol/L Chloride 99 L (100-108) mmol/L Carbon Dioxide 30 (21-32) mmol/L Anion Gap 12.0 (5.0-14.0) mmol/L BUN 7 D (7-18) mg/dL Creatinine 1.2 (0.8-1.3) mg/dL Est Cr Clr Drug Dosing 75.08 mL/min Estimated GFR (MDRD) > 60 (>60) Glucose 144 H (74-106) mg/dL Calcium 9.4 (8.5-10.1) mg/dL C-Reactive Protein 0.56 H (0.0-0.3) mg/dL SARS-CoV-2 RNA (FABRIZIO) Negative (NEGATIVE) - Radiology Interpretation Free Text/Narrative:: I reviewed the chest x-ray 1 view showing no acute infiltrates. - Re-Assessments/Exams Free Text/Narrative Re-Assessment/Exam: 01/10/21 22:21 the chest 1 view did not show any evidence for acute infiltrates that would signify a pneumonia, however, the patient does have a significant leukocytosis at 15.7 with a left shift. His hemoglobin is 17.0 with a hematocrit of 45.9 and a platelet count of 261,000. His basic metabolic profile is unremarkable except slight elevation in his creatinine of 1.2. His C- reactive protein is mildly elevated 0.56 and his COVID-19 test is negative. Given the leukocytosis and lack of infiltrate accompanied by some rhonchi in the right base, this is likely an acute bronchitis. We will put him on a 7-day course of Augmentin 875 mg twice daily. This has been sent out to the [facility] machine. Indications return to the ED were discussed and the patient is suitable for discharge in satisfactory condition. Departure - Departure Time of Disposition: 22:22 Disposition: Home, Self-Care 01 Clinical Impression: Acute bacterial bronchitis - Discharge Information Instructions: Acute Bronchitis, Adult, [id number] Referrals: Karen Morataya PA-C [Primary Care Provider] - Care Plan Goals: Your work-up today has shown that she likely have an acute bronchitis. We are going to put you on Augmentin 875 mg twice daily for 7 days to treat this. You may use any of the [id number] cough medicines to help control your cough. I have sent the antibiotic to the [facility] so you may start it tonight. COVID-19 test again was negative. Sepsis Event Note (ED) - Evaluation Sepsis Screening Result: No Definite Risk - Focused Exam Vital Signs: Vital Signs Temp Pulse Resp BP Pulse Ox 01/10/21 20:53 36.8 C 115 H 17 132/74 96 01/10/21 20:52 36.8 C 115 H 17 132/74 96 - Problem List & Annotations (1) Acute bacterial bronchitis SNOMED Code(s): 642350170 Code(s): J20.8 - ACUTE BRONCHITIS DUE TO OTHER SPECIFIED ORGANISMS; B96.89 - OTH BACTERIAL AGENTS THE CAUSE OF DISEASES CLASSD [id number] Status: Acute Priority: Medium Current Visit: Yes - Problem List Review Problem List Initiated/Reviewed/Updated: Yes - My Orders Last 24 Hours: My Active Orders 01/10/21 21:13 Chest 1V Frontal [CR] Stat - Assessment/Plan Last 24 Hours: My Active Orders 01/10/21 21:13 Chest 1V Frontal [CR] Stat
--- NOTE | 2021-01-11 09:55 | CR ---
CHEST: Portable 01/10/2021 at 9:53 PM CLINICAL HISTORY:Cough and dyspnea COMPARISON:2007 FINDINGS: The heart size, pulmonary vascularity and hilar structures are normal. No infiltrate effusion or pneumothorax is seen. IMPRESSION: No acute cardiopulmonary process.
== END 2021-01-10 22:37 | disposition home or self-care (01) ==
LOC: JP.ED 19:48
DX: J20.8 Acute bronchitis due to other specified organisms (principal); B96.89 Other specified bacterial agents as the cause of diseases classified elsewhere; E10.40 Type 1 diabetes mellitus with diabetic neuropathy, unspecified; Z72.0 Tobacco use; Z20.822 Contact with and (suspected) exposure to COVID-19
CPT/HCPCS: 36415; 71045; 71045-26; 80048; 85025; 86140; 99285-25; U0002

== ENCOUNTER 2022-08-04 06:51 | Emergency (ER) | payer MEDICAID ==
[2022-08-04 07:08] VITALS: BP 139/87; PULSE 96
[2022-08-04 08:12] LABS: ESTIMATED GFR 105 mL/min (>60); TROPONIN I HIGH SENSITIVITY 5.6 pg/mL (<=60.3)
== END 2022-08-04 08:41 | disposition home or self-care (01) ==
LOC: JP.ED 06:51
DX: R42 Dizziness and giddiness (principal); R07.89 Other chest pain; T46.7X5A Adverse effect of peripheral vasodilators, initial encounter; E10.9 Type 1 diabetes mellitus without complications; Z87.891 Personal history of nicotine dependence
CPT/HCPCS: 36415; 80053; 82009; 84443; 84484; 85025; 85610; 85730; 93005; 93010; 99283; 99285

== ENCOUNTER 2022-08-04 21:44 | Emergency (ER) | payer MEDICAID ==
[2022-08-04 22:01] VITALS: BP 124/77; PULSE 99
== END 2022-08-04 22:38 | disposition home or self-care (01) ==
LOC: JP.ED 21:44
DX: E10.42 Type 1 diabetes mellitus with diabetic polyneuropathy (principal); Z87.891 Personal history of nicotine dependence
CPT/HCPCS: 99283; 99284